=== PATIENT | female | born 1935 | race Caucasian/White ===

== ENCOUNTER → 2017-07-02 | Outpatient (CLI) | payer MEDICARE ==
[~2017-07-02] MED LIST: AMIODARONE HCL200 MG PO; ATENOLOL25 MG PO; CALTRATE 600 +1 EACH PO; CLONIDINE HCL0.1 MG PO; DIGOXIN125 MCG PO; DIOVAN HCT 3201 EACH PO; DIOVAN160 MG PO; PREMARIN0.45 MG PO; PRILOSEC OTC20 MG PO; SYNTHROID112 MCG PO; WARFARIN SODIUM5 MG PO
--- NOTE | 2017-07-02 15:48 | Diagnostic Imaging Report ---
PROCEDURE:THORACIC SPINE 2VW COMPARISON:None available. INDICATIONS:ONGOING UPPER BACK PAIN FINDINGS: See below. CONCLUSION: Multilevel degenerative changes of thoracic spine, marked by joint space narrowing and osteophytosis. No evidence of acute fracture or subluxation of thoracic spine. Vertebral body alignment and heights are maintained. Partially imaged left chest wall cardiac device leads. Dictated by: Josh Sosa M.D. on 07/02/2017 at 15:57 Electronically approved by: Josh Sosa M.D. on 07/02/2017 at 15:57
--- NOTE | 2017-07-02 15:55 | Diagnostic Imaging Report ---
PROCEDURE:L-SPINE COMPLETE COMPARISON:None. INDICATIONS:ONGOING LOWER BACK PAIN FINDINGS: There are 5 lumbar-type vertebral bodies. There is grade 1 retrolisthesis of L5 in relation to L4. Otherwise vertebral body alignments are normal. Vertebral body heights are maintained. Multilevel degenerative changes and facet arthropathy, most severe at L3-L4, L4-L5, and L5-S1. There are no fractures, lytic or blastic lesions. Vascular calcifications. CONCLUSION: Multilevel degenerative changes of lumbar spine. Grade 1 retrolisthesis of L5 in relation to L4. Dictated by: Josh Sosa M.D. on 07/02/2017 at 16:03 Electronically approved by: Josh Sosa M.D. on 07/02/2017 at 16:03
== END ==
LOC: RAD 13:42
PROVIDERS: ATTEND Family Medicine
DX: M54.6 Pain in thoracic spine (principal); M54.5 Low back pain; G89.29 Other chronic pain
CPT/HCPCS: 72070; 72110

== ENCOUNTER 2018-04-30 06:27 | Emergency (ER) | payer MEDICARE ==
[~2018-04-30] VITALS: Ht 322.6 cm; Wt 79.8 kg
--- OUTSIDE RECORDS SUMMARY | 2018-04-30 06:32 | XMS REPORT ---
Author Author [facility] Address Unknown Phone Unavailable Care Team Providers Care [employer] Hand Name Role Phone Annamarie BERNAL Unavailable Unavailable Problems This patient has no known problems. Allergies, Adverse Reactions, Alerts This patient has no known allergies or adverse reactions. Medications This patient has no known medications. Results Test Description Test Time Test Comments Text Results Atomic Results Result Comments THORACIC SPINE 2VW [place] [address] Patient Name: JENNIFER LOWE MR #: [id number] : 1935 Age/Sex: 82/F Req #: [id number] [facility] Physician: Ordered by: AXEL BERNAL DO Report #: [id number] Location: [facility] Room/Bed: Procedure: [id number] DX/THORACIC SPINE 2VW Exam Date: 07/02/17 Exam Time: 1445 REPORT STATUS: Signed PROCEDURE: THORACIC SPINE 2VW COMPARISON: None available. INDICATIONS: ONGOING UPPER BACK PAIN FINDINGS: See below. CONCLUSION: Multilevel degenerative changes of thoracic spine, marked by joint space narrowing and osteophytosis. No evidence of acute fracture or subluxation of thoracic spine. Vertebral body alignment and heights are maintained. Partially imaged left chest wall cardiac device leads. Dictated by: Josh Sosa M.D. on 07/02/2017 at 15:57 Electronically approved by: Josh Sosa M.D. on 07/02/2017 at 15:57 Dictated By: JOSH SOSA MD 56 Transcribed By: KRISTINA on 07/02/171556 COPY TO: AXEL BERNAL DO SP LUMBAR, COMPLETE MIN 4VW [place] [address] Patient Name: JENNIFER LOWE MR #: [id number] : 1935 Age/Sex: 82/F Req #: [id number] Adm Physician: Ordered by: AXEL BERNAL DO Report #: [id number] Location: [facility] Room/Bed: Procedure: [id number] DX/SP LUMBAR, COMPLETE MIN 4VW Exam Date: 07/02/17 Exam Time: 1445 REPORT STATUS: Signed PROCEDURE: L-SPINE COMPLETE COMPARISON: None. INDICATIONS: ONGOING LOWER BACK PAIN FINDINGS: There are 5 lumbar- type vertebral bodies. There is grade 1 retrolisthesis of L5 in relation to L4. Otherwise vertebral body alignments are normal. Vertebral body heights are maintained. Multilevel degenerative changes and facet arthropathy, most severe at L3-L4, L4-L5, and L5-S1. There are no fractures, lytic or blastic lesions. Vascular calcifications. CONCLUSION: Multilevel degenerative changes of lumbar spine. Grade 1 retrolisthesis of L5 in relation to L4. Dictated by: Josh Sosa M.D. on 07/02/2017 at 16:03 Electronically approved by: Josh Sosa M.D. on 07/02/2017 at 16:03 Dictated By: JOSH SOSA MD 1603 Transcribed By: KRISTINA on 07/02/17 1603 COPY TO: AXEL BERNAL DO
--- OUTSIDE RECORDS SUMMARY | 2018-04-30 06:32 | XMS REPORT | Clinical Summary ---
Author Author [facility] Address Unknown Phone Unavailable Care Team Providers Care Consulting Technical Director Name Role Phone System, Provider Not In MD PCP Unavailable Allergies Active Allergy Reactions Severity Noted Date Comments Codeine Other (See Comments) Medium 01/11/2018 hallucinations Penicillins Rash Low 01/11/2018 Current Medications Prescription Sig. Disp. Refills Start End Date Status Date warfarin (COUMADIN) 5 MG Take 5 mg by mouth daily. Active tablet Take 1 tablet (5mg) by mouth daily for 30 days. levothyroxine (SYNTHROID, Take 112 mcg by mouth Active LEVOXYL) 112 mcg tablet every morning. atenolol (TENORMIN) 100 Take 100 mg by mouth 2 Active MG tablet (two) times a day. valsartan 160 MG tablet 1 Take by mouth daily. Active tablet, hydroCHLOROthiazide 25 MG tablet 1 tablet diltiazem CD (CARTIA XT) Take 120 mg by mouth Active 120 MG 24 hr capsule daily. amIODarone (PACERONE) 200 Take 200 mg by mouth 2 Active MG tablet (two) times a week. metFORMIN (GLUCOPHAGE) Take 500 mg by mouth Active 500 mg tablet daily. omeprazole (PriLOSEC) 20 Take 20 mg by mouth Active MG capsule daily. folic Take 1 tablet by mouth Active acid/multivit-min/lutein daily. (CENTRUM SILVER ORAL) vit A/vit C/vit Take 1 tablet by mouth 2 Active E/zinc/copper (two) times a day. (PRESERVISION AREDS ORAL) Active Problems Not on file Encounters Date Type Specialty Care Team Description 01/14/2018 [facility] Radiology Quin Cool MD Postlaminectomy syndrome, Encounter lumbar region; Lumbar radiculopathy 01/14/2018 [facility] Radiology Quin Cool MD Postlaminectomy syndrome, Encounter lumbar region; Lumbar radiculopathy 12/31/2017 [facility] Quin Cool MD Postlaminectomy syndrome, Orders lumbar region (Primary Dx); Lumbar radiculopathy after 04/29/2017 Family History Medical History Relation Name Comments Heart disease Father Cancer Mother Relation Name Status Comments Father Mother Social History Tobacco Use Types Packs/Day Years Used Date Never Smoker Smokeless Tobacco: Never Used Alcohol Use Drinks/Week oz/Week Comments Yes 1 Glasses of 0.6 once every few month wine Sex Assigned at Date Recorded Not on file Last Filed Vital Signs Vital Sign Reading Time Taken Blood Pressure 147/69 01/14/2018 2:00 PM CDT Pulse 62 01/14/2018 2:00 PM CDT Temperature 36.6 C (97.9 F) 01/14/2018 10:16 AM CDT Respiratory Rate 18 01/14/2018 2:00 PM CDT Oxygen Saturation 96% 01/14/2018 2:00 PM CDT Inhaled Oxygen - - Concentration Weight 85.1 kg (187 lb 9 oz) 01/14/2018 7:48 AM CDT Height 165.1 cm (5' 5") 01/14/2018 7:48 AM CDT Body Mass Index 31.21 01/14/2018 7:48 AM CDT Plan of Treatment Health Maintenance Due Date Last Done Comments SHINGRIX VACCINE (#1) 1984 ZOSTER VACCINE 1994 PNEUMOCOCCAL 1999 POLYSACCHARIDE VACCINE AGE 65 AND OVER PNEUMOCOCCAL-13 1999 INFLUENZA VACCINE 01/23/2018 Procedures Procedure Name Priority Date/Time Associated Diagnosis Comments CT POST MYELOGRAM LUMBAR Routine 01/14/2018 Postlaminectomy syndrome, Results for this 10:05 AM CDT lumbar region procedure are in the Lumbar radiculopathy results section. FL MYELOGRAM LUMB INCL Routine 01/14/2018 Postlaminectomy syndrome, Results for this INJ W S&I 9:40 AM CDT lumbar region procedure are in the Lumbar radiculopathy results section. GRAM STAIN Routine 01/14/2018 Results for this 9:22 AM CDT procedure are in the results section. CSF CULTURE Routine 01/14/2018 Results for this 9:22 AM CDT procedure are in the results section. CSF PATHOLOGIST CONSULT Routine 01/14/2018 Results for this 9:21 AM CDT procedure are in the results section. VDRL, CSF SCREEN Routine 01/14/2018 Results for this 9:21 AM CDT procedure are in the results section. GLUCOSE LEVEL, CSF Routine 01/14/2018 Results for this 9:21 AM CDT procedure are in the results section. PROTEIN, CSF Routine 01/14/2018 Results for this 9:21 AM CDT procedure are in the results section. CSF CELL COUNT WITH Routine 01/14/2018 Results for this DIFFERENTIAL 9:21 AM CDT procedure are in the results section. HC COMPLETE BLD COUNT STAT 01/14/2018 Results for this W/AUTO DIFF 7:40 AM CDT procedure are in the results section. PARTIAL THROMBOPLASTIN STAT 01/14/2018 Results for this TIME (PTT) 7:40 AM CDT procedure are in the results section. PROTHROMBIN TIME WITH INR STAT 01/14/2018 Results for this 7:40 AM CDT procedure are in the results section. POC GLUCOSE Routine 01/14/2018 Results for this 7:36 AM CDT procedure are in the results section. after 04/29/2017 Results * CT Post Myelogram Lumbar (01/14/2018 10:05 AM) Narrative Performed At EXAMINATION:CT POST MYELOGRAM LUMBAR [facility] CLINICAL HISTORY:M96.1 Postlaminectomy syndromenot elsewhere classified, M54.16 Radiculopathylumbar region, POST LAMINECTOMY SYNDROMERADICULOPATHY COMPARISON:None. FINDINGS: There is a scoliosis of the lumbar spine moderate degree convex to the left in the lower lumbar region and to the right in the upper lumbar region. Severe degenerative facet disease is present at multiple levels throughout the lumbar spine. There is a grade 1 spondylolisthesis of L4 on L5 and there is severe degenerative facet disease at multiple levels. L1-2: The foramina demonstrate narrowing to the left related to a disc protrusion although greater toward the left. This compresses the thecal sac anterolaterally toward the left. The central canal measures approximately 10 to 11 mm. The left lateral recess is narrowed related to the disc protrusion and facet hypertrophy the right is patent. Facets are grossly hypertrophic. L2-3: The foramina demonstrate marked narrowing of the foramen to the left with milder narrowing of the foramen to the right related to diffuse disc protrusion again greater toward the left. There is a severe central canal and bilateral lateral recess stenosis with an AP canal of approximately 4 mm. Thecontrast column at that level is obliterated. Facets are also grossly hypertrophic and compresses the thecal sac dorsally. L3-4: The foramina are narrowed bilaterally again greater to the left by disc protrusion mild osteophytic ridge. There is a spinal stenosis with the AP canal narrowed to approximately 7 mm. The lateral recesses are narrowed greater to the right with obliteration of the right lateral recess at that level. Facets are grossly hypertrophic. L4-5: There is a pronounced central canal and bilateral lateral recess stenosis with marked narrowing of the central canal and lateral recesses related to an osteophytic ridge, mild central disc protrusion and gross dorsal facet and ligamentous hypertrophy. L5-S1: There is foraminal narrowing greater to the left although also likely due to degenerative changes with posterior lateral protrusion with some faint calcification centrally and to the left at the level of the scar may contribute. A laminectomy defect dorsally to the left is present at that level. The thecal sac is compressed anterolaterally toward the left with gross dorsal facet and ligamentous hypertrophy. IMPRESSION: 1. Multilevel spinal stenosis with a stenosis at the L4-5, L3-4 L2-3 and L1-2 levels greatest at the L2-3 level although tiny stenosis is present at multiple levels. 2. Posterior lateral apparent protrusion centrally and to the left at the L5-S1 level although some of this could be related to scar disc is suspected. 3. Foraminal stenosis at multiple levels greatest at the left at L1-L2, L2-3 and L3-4 levels. [id number] Procedure Note Hm Interface, Radiology Results 01/14/2018 11:56 AM CDT EXAMINATION: CT POST MYELOGRAM LUMBAR CLINICAL HISTORY: M96.1 Postlaminectomy syndrome not elsewhere classified, M54.16 Radiculopathy lumbar region, POST LAMINECTOMY SYNDROME RADICULOPATHY COMPARISON: None. FINDINGS: There is a scoliosis of the lumbar spine moderate degree convex to the left in the lower lumbar region and to the right in the upper lumbar region. Severe degenerative facet disease is present at multiple levels throughout the lumbar spine. There is a grade 1 spondylolisthesis of L4 on L5 and there is severe degenerative facet disease at multiple levels. L1-2: The foramina demonstrate narrowing to the left related to a disc protrusion although greater toward the left. This compresses the thecal sac anterolaterally toward the left. The central canal measures approximately 10 to 11 mm. The left lateral recess is narrowed related to the disc protrusion and facet hypertrophy the right is patent. Facets are grossly hypertrophic. L2-3: The foramina demonstrate marked narrowing of the foramen to the left with milder narrowing of the foramen to the right related to diffuse disc protrusion again greater toward the left. There is a severe central canal and bilateral lateral recess stenosis with an AP canal of approximately 4 mm. The contrast column at that level is obliterated. Facets are also grossly hypertrophic and compresses the thecal sac dorsally. L3-4: The foramina are narrowed bilaterally again greater to the left by disc protrusion mild osteophytic ridge. There is a spinal stenosis with the AP canal narrowed to approximately 7 mm. The lateral recesses are narrowed greater to the right with obliteration of the right lateral recess at that level. Facets are grossly hypertrophic. L4-5: There is a pronounced central canal and bilateral lateral recess stenosis with marked narrowing of the central canal and lateral recesses related to an osteophytic ridge, mild central disc protrusion and gross dorsal facet and ligamentous hypertrophy. L5-S1: There is foraminal narrowing greater to the left although also likely due to degenerative changes with posterior lateral protrusion with some faint calcification centrally and to the left at the level of the scar may contribute. A laminectomy defect dorsally to the left is present at that level. The thecal sac is compressed anterolaterally toward the left with gross dorsal facet and ligamentous hypertrophy. IMPRESSION: 1. Multilevel spinal stenosis with a stenosis at the L4-5, L3-4 L2-3 and L1-2 levels greatest at the L2-3 level although tiny stenosis is present at multiple levels. 2. Posterior lateral apparent protrusion centrally and to the left at the L5-S1 level although some of this could be related to scar disc is suspected. 3. Foraminal stenosis at multiple levels greatest at the left at L1-L2, L2-3 and L3-4 levels. [id number] Performing Organization Address City/State/Zipcode Phone Number [facility] [id number] [place] [address] * FL Myelogram Lumb Incl Inj W S&I (01/14/2018 9:40 AM) Narrative Performed At EXAMINATION:FL MYELOGRAM LUMB INCL INJ W S&I [facility] CLINICAL HISTORY:M96.1 Postlaminectomy syndromenot elsewhere classified, M54.16 Radiculopathylumbar region, POST LAMINECTOMY SYNDROMERADICULOPATHY COMPARISON: Following informed consent using aseptic technique under local anesthetic Fluoroscopy time 3 minutes 46 seconds, 18 spot images were obtained. FINDINGS: Informed consent was obtained after discussion the procedure with the patient. She understood and wished to proceed. She has been off Coumadin for 7 days. Lumbar puncture was performed with the L3 level was first attempted with a 25-gauge spinal needle given the severe hypertrophic changes a 22-gauge needle was required. 2 cc of clear CSF was obtained without difficulty. I then instilled approximately 10 cc of Omnipaque 240 into the lumbar subarachnoid space. There is a grade 1 spondylolisthesis of L4 on L5. There also appears to be a laminectomy defect toward the right at the L3 level there may be a defect at the L4-5 and L5-S1 levels as well correlation with clinical findings is needed. Scoliosis is present mild in degree convex toward the left. There is a multilevel spinal stenosis with the most severe stenosis at the L2-3 level with obliteration of the canal or near obliteration of the canal at this level. The nerve roots appear serpiginous above this level there is also a high-grade spinal stenosis at the L1-2 level with milder changes at the L3-4, L4-5 and minimal changes at L5-S1. The root sleeves fill poorly bilaterally throughout the lumbar region on both sides. The stenosis appears to be result of both hypertrophic degenerative facet disease dorsallyand disc protrusions along the ventral surface of the canal grossly and disc protrusions at multiple levels. No additional findings of significance are noted. IMPRESSION: 1. Scoliosis of the lumbar spine with associated hypertrophic degenerative changes involving the facet joints with degenerative disc disease throughout the lumbar region. 2. Multilevel spinal stenosis with a tight stenosis and near obliteration of the canal at the L2-3 with milder changes at the L1-2 and L3-4 levels with borderline stenoses at the L4-5 and L5-S1 levels as well. [id number] Procedure Note Hm Interface, Radiology Results Incoming - 01/14/2018 10:49 AM CDT EXAMINATION: FL MYELOGRAM LUMB INCL INJ W S&I CLINICAL HISTORY: M96.1 Postlaminectomy syndrome not elsewhere classified, M54.16 Radiculopathy lumbar region, POST LAMINECTOMY SYNDROME RADICULOPATHY COMPARISON: Following informed consent using aseptic technique under local anesthetic Fluoroscopy time 3 minutes 46 seconds, 18 spot images were obtained. FINDINGS: Informed consent was obtained after discussion the procedure with the patient. She understood and wished to proceed. She has been off Coumadin for 7 days. Lumbar puncture was performed with the L3 level was first attempted with a 25- gauge spinal needle given the severe hypertrophic changes a 22-gauge needle was required. 2 cc of clear CSF was obtained without difficulty. I then instilled approximately 10 cc of Omnipaque 240 into the lumbar subarachnoid space. There is a grade 1 spondylolisthesis of L4 on L5. There also appears to be a laminectomy defect toward the right at the L3 level there may be a defect at the L4-5 and L5-S1 levels as well correlation with clinical findings is needed. Scoliosis is present mild in degree convex toward the left. There is a multilevel spinal stenosis with the most severe stenosis at the L2-3 level with obliteration of the canal or near obliteration of the canal at this level. The nerve roots appear serpiginous above this level there is also a high- grade spinal stenosis at the L1-2 level with milder changes at the L3-4, L4-5 and minimal changes at L5-S1. The root sleeves fill poorly bilaterally throughout the lumbar region on both sides. The stenosis appears to be result of both hypertrophic degenerative facet disease dorsally and disc protrusions along the ventral surface of the canal grossly and disc protrusions at multiple levels. No additional findings of significance are noted. IMPRESSION: 1. Scoliosis of the lumbar spine with associated hypertrophic degenerative changes involving the facet joints with degenerative disc disease throughout the lumbar region. 2. Multilevel spinal stenosis with a tight stenosis and near obliteration of the canal at the L2-3 with milder changes at the L1-2 and L3-4 levels with borderline stenoses at the L4-5 and L5-S1 levels as well. [id number] Performing Organization Address City/State/Zipcode Phone Number [facility] [phone] [place] [address] * Gram stain (01/14/2018 9:22 AM) Gram stain isolate No WBC's or organisms seen. [facility] DEPARTMENT OF Comment: PATHOLOGY AND Specimen Information GENOMIC MEDICINE Specimen Source: CSF (Spinal Fluid) Specimen Site: CSF (spinal fluid) Specimen Cerebrospinal fluid - CSF (spinal fluid) Performing Organization Address [facility] Phone Number [facility] DEPARTMENT OF [address] [place] [id number] PATHOLOGY AND GENOMIC MEDICINE * CSF culture (01/14/2018 9:22 AM) CSF culture isolate No growth after 3 days. [facility] DEPARTMENT OF Comment: PATHOLOGY AND Specimen Information GENOMIC MEDICINE Specimen Source: CSF (Spinal Fluid) Specimen Site: CSF (spinal fluid) Specimen Cerebrospinal fluid - CSF (spinal fluid) Performing Organization Address [facility] Phone Number [facility] DEPARTMENT [address] [address] PATHOLOGY AND GENOMIC MEDICINE * CSF pathologist consult (01/14/2018 9:21 AM) CSF pathologist consult Done [facility] DEPARTMENT OF PATHOLOGY AND GENOMIC MEDICINE Specimen Cerebrospinal fluid Performing Organization Address [facility] Phone Number [address] [place] [address] PATHOLOGY AND GENOMIC MEDICINE * CSF cell count with differential (01/14/2018 9:21 AM) CSF tube number Tube 1 [facility] DEPARTMENT OF PATHOLOGY AND GENOMIC MEDICINE Color, CSF Colorless [facility] DEPARTMENT OF PATHOLOGY AND GENOMIC MEDICINE Appearance, CSF Clear [facility] DEPARTMENT OF PATHOLOGY AND GENOMIC MEDICINE CSF supernatant Colorless [facility] DEPARTMENT OF PATHOLOGY AND GENOMIC MEDICINE RBC, CSF 70 (H) 0 - 1 /CMM [facility] DEPARTMENT OF PATHOLOGY AND GENOMIC MEDICINE WBC, CSF 5 0 - 5 /CMM [facility] DEPARTMENT OF PATHOLOGY AND GENOMIC MEDICINE CSF mononuclear cell See Diff [facility] DEPARTMENT OF PATHOLOGY AND GENOMIC MEDICINE Neutrophils, CSF 5 % [facility] DEPARTMENT OF PATHOLOGY AND GENOMIC MEDICINE Lymphocytes, CSF 22 % [facility] DEPARTMENT OF PATHOLOGY AND GENOMIC MEDICINE Monocytes, CSF 23 % [facility] DEPARTMENT OF PATHOLOGY AND GENOMIC MEDICINE Eosinophils, CSF 0 % [facility] DEPARTMENT OF PATHOLOGY AND GENOMIC MEDICINE Basophils, CSF 0 % [facility] DEPARTMENT OF PATHOLOGY AND GENOMIC MEDICINE Specimen Cerebrospinal fluid Performing Organization Address [facility] [place] Phone Number [address] [place] [address] PATHOLOGY AND GENOMIC MEDICINE * VDRL, CSF screen (01/14/2018 9:21 AM) VDRL, CSF screen Non-reactive Non-reactive [facility] DEPARTMENT OF PATHOLOGY AND GENOMIC MEDICINE Specimen Cerebrospinal fluid Performing Organization Address [facility] Phone Number [facility] DEPARTMENT OF [address] [place] [address] PATHOLOGY AND GENOMIC MEDICINE * Protein, CSF (01/14/2018 9:21 AM) Protein, CSF 129 (H) 15 - 45 mg/dL [facility] DEPARTMENT OF PATHOLOGY AND GENOMIC MEDICINE Specimen Cerebrospinal fluid Performing Organization Address [facility] Phone Number [address] [place] [address] PATHOLOGY AND GENOMIC MEDICINE * Glucose level, CSF (01/14/2018 9:21 AM) Glucose, CSF 72 (H) 40 - 70 mg/dL [facility] DEPARTMENT OF PATHOLOGY AND GENOMIC MEDICINE Specimen Cerebrospinal fluid Performing Organization Address [facility] [place] Phone Number [address] [place] [address] PATHOLOGY AND GENOMIC MEDICINE * Partial thromboplastin time, activated (01/14/2018 7:40 AM) PTT 31.7 23.0 - 36.0 sec [facility] DEPARTMENT OF Comment: PATHOLOGY AND PTT therapeutic range for [facility] MEDICINE unfractionated heparin is 61.0-112.0 seconds which corresponds to Anti-Xa 0.3-0.7 U/ml. Specimen Blood Performing Organization Address [facility] [place] Phone Number [address] [place] [address] PATHOLOGY AND [facility] MEDICINE * Prothrombin time with INR (01/14/2018 7:40 AM) Prothrombin time 14.2 12.0 - 15.0 sec [facility] DEPARTMENT OF PATHOLOGY AND GENOMIC MEDICINE INR 1.1 [facility] DEPARTMENT OF Comment: PATHOLOGY AND The International Normalized GENOMIC MEDICINE Ratio (INR) is a therapeutic monitoring tool for patients who are stable on oral anticoagulant therapy. An INR of 2.0-3.0 is suggested for deep vein thrombosis/pulmonary embolism. Specimen Blood Performing Organization Address [facility] [place] Phone Number [address] [place] [address] PATHOLOGY AND GENOMIC MEDICINE * CBC with platelet and differential (01/14/2018 7:40 AM) WBC 9.07 4.50 - 11.00 k/uL [facility] DEPARTMENT OF PATHOLOGY AND GENOMIC MEDICINE RBC 4.18 (L) 4.20 - 5.50 m/uL [facility] DEPARTMENT OF PATHOLOGY AND GENOMIC MEDICINE HGB 13.7 12.0 - 16.0 g/dL [facility] DEPARTMENT OF PATHOLOGY AND GENOMIC MEDICINE HCT 40.8 37.0 - 47.0 % [facility] DEPARTMENT OF PATHOLOGY AND GENOMIC MEDICINE MCV 97.6 82.0 - 100.0 fL [facility] DEPARTMENT OF PATHOLOGY AND GENOMIC MEDICINE MCH 32.8 27.0 - 34.0 pg [facility] DEPARTMENT OF PATHOLOGY AND GENOMIC MEDICINE MCHC 33.6 31.0 - 37.0 g/dL [facility] DEPARTMENT OF PATHOLOGY AND GENOMIC MEDICINE RDW - SD 47.3 37.0 - 55.0 fL [facility] DEPARTMENT OF PATHOLOGY AND GENOMIC MEDICINE MPV 10.2 8.8 - 13.2 fL [facility] DEPARTMENT OF PATHOLOGY AND GENOMIC MEDICINE Platelet count 233 150 - 400 k/uL [facility] DEPARTMENT OF PATHOLOGY AND GENOMIC MEDICINE Nucleated RBC 0.00 /100 WBC [facility] DEPARTMENT OF PATHOLOGY AND GENOMIC MEDICINE Neutrophils 65.1 39.0 - 69.0 % [facility] DEPARTMENT OF PATHOLOGY AND GENOMIC MEDICINE Lymphocytes 25.7 25.0 - 45.0 % [facility] DEPARTMENT OF PATHOLOGY AND GENOMIC MEDICINE Monocytes 7.1 0.0 - 10.0 % [facility] DEPARTMENT OF PATHOLOGY AND GENOMIC MEDICINE Eosinophils 1.4 0.0 - 5.0 % [facility] DEPARTMENT OF PATHOLOGY AND GENOMIC MEDICINE Basophils 0.4 0.0 - 1.0 % [facility] DEPARTMENT OF PATHOLOGY AND GENOMIC MEDICINE Specimen Blood Performing Organization Address City/[facility] Phone Number [facility] [id number] [place] [address] [place] [id number] PATHOLOGY AND GENOMIC MEDICINE * POC glucose (01/14/2018 7:36 AM) POC glucose 124 (H) 65 - 99 mg/dL [facility] DEPARTMENT OF Comment: PATHOLOGY AND Meter ID: [id number] GENOMIC MEDICINE Cane [employer]ume Feeding Machine Operator: Carina Montaño Performing Organization Address City/[facility]/Zipcode Phone Number [address] [place] [address] PATHOLOGY AND GENOMIC MEDICINE after 04/29/2017 Insurance Payer Benefit Subscriber ID Type Phone Address Plan / Group AETNA MEDICARE AETNA xxxxxxxx HMO MEDICARE HMO/PPO [facility]
--- NOTE | 2018-04-30 07:17 | Diagnostic Imaging Report ---
PROCEDURE:X-RAY LEFT SHOULDER, COMPLETE COMPARISON:None. INDICATIONS:FALL FINDINGS: There are no fractures, dislocations, lytic or blastic lesions. Mild AC joint degenerative change. The bones are well-mineralized. The soft-tissues are unremarkable. A cardiac device overlies the left chest wall. CONCLUSION: No acute bony abnormality. Grey Rooney D.O. Dictated by: Grey Rooney D.O. on 04/30/2018 at 7:25 Electronically approved by: Grey Rooney D.O. on 04/30/2018 at 7:25
== END 2018-04-30 09:39 | disposition home or self-care (01) ==
LOC: ER 06:27
DX: S40.012A Contusion of left shoulder, initial encounter (principal); M25.512 Pain in left shoulder; W18.39XA Other fall on same level, initial encounter; Y92.008 Other place in unspecified non-institutional (private) residence as the place of occurrence of the external cause; I10 Essential (primary) hypertension; E11.9 Type 2 diabetes mellitus without complications; E03.9 Hypothyroidism, unspecified; I48.91 Unspecified atrial fibrillation
CPT/HCPCS: 99283

== ENCOUNTER 2018-06-03 13:50 | Outpatient (RCR) | payer MEDICARE | END 2018-06-24 | LOC: PT 13:50 | PROVIDERS: ATTEND Specialist | DX: Z96.652 Presence of left artificial knee joint (principal); S82.035D Nondisplaced transverse fracture of left patella, subsequent encounter for closed fracture with routine healing; S80.02XD Contusion of left knee, subsequent encounter; S46.012D Strain of muscle(s) and tendon(s) of the rotator cuff of left shoulder, subsequent encounter; M17.11 Unilateral primary osteoarthritis, right knee; S80.01XD Contusion of right knee, subsequent encounter | CPT/HCPCS: 97162; G8978; G8979 ==

== ENCOUNTER 2018-06-09 09:04 | Emergency (ER) | payer MEDICARE ==
[~2018-06-09] VITALS: Ht 165.1 cm; Wt 81.6 kg
[2018-06-09 09:44] LABS: BASOPHILS % 0.2 % (0.0-1.0); EOSINOPHILS # (AUTO) 0.1 (0.0-0.4); EOSINOPHILS % 1.5 % (0.0-6.0); HEMATOCRIT 39.5 % (34.2-44.1); HEMOGLOBIN 13.1 g/dL (12.0-16.0); LYMPHOCYTES # (AUTO) 1.8 (1.0-3.2); LYMPHOCYTES % 22.2 % (18.0-39.1); MEAN CORPUSCULAR HEMOGLOBIN 32.4 pg (28-32); MEAN CORPUSCULAR HGB CONC 33.2 g/dL (31-35); MEAN CORPUSCULAR VOLUME 97.8 fL (81-99); MONOCYTES # (AUTO) 0.7 (0.2-0.8); MONOCYTES % 8.9 % (4.4-11.3); NEUTROPHILS # (AUTO) 5.4 (2.1-6.9); NEUTROPHILS % 66.8 % (38.7-80.0); PLATELET COUNT 254 x10e3/uL (140-360); RED BLOOD COUNT 4.04 x10e6/uL (3.6-5.1); RED CELL DISTRIBUTION WIDTH 13.4 % (11.7-14.4)
[2018-06-09] MEDS ORDERED: ASPIRIN 81 MG CHEW TAB PO ONE (09:45)
[2018-06-09 10:01] LABS: INR 1.15; PROTHROMBIN TIME 15.7 seconds (11.9-14.5)
[2018-06-09 10:02] LABS: PARTIAL THROMBOPLASTIN TIME 32.9 seconds (23.8-35.5)
[2018-06-09 10:05] LABS: ANION GAP 14.2 mmol/L (8-16); BLOOD UREA NITROGEN 23 mg/dL (7-26); BUN/CREATININE RATIO 24 (6-25); CALCIUM 9.8 mg/dL (8.4-10.2); CARBON DIOXIDE 28 mmol/L (22-29); CHLORIDE 101 mmol/L (98-107); CREATINE KINASE 55 IU/L (29-168); CREATININE, SERUM 0.94 mg/dL (0.57-1.11); EST GLOMERULAR FILTRATION RATE 57 ML/MIN (60-); GLUCOSE 113 mg/dL (74-118); POTASSIUM 4.2 mmol/L (3.5-5.1); SODIUM 139 mmol/L (136-145)
--- NOTE | 2018-06-09 10:18 | Diagnostic Imaging Report ---
EXAMINATION: CHEST SINGLE (NOT PORTABLE) INDICATION: ^CHEST PAIN ^[id number] ^[id number] COMPARISON: None FINDINGS: AP view TUBES and LINES: 2-lead pacemaker device overlying the left upper chest with leads overlying the right atrial appendage and right ventricle. LUNGS: Lungs are well inflated. Lungs are clear. There is no evidence of pneumonia or pulmonary edema. PLEURA: No pleural effusion or pneumothorax. HEART AND MEDIASTINUM: The cardiomediastinal silhouette is unremarkable.. BONES AND SOFT TISSUES: No acute osseous lesion. Soft tissues are unremarkable. UPPER ABDOMEN: No free air under the diaphragm. IMPRESSION: No acute thoracic abnormality. Signed by: Dr. Milagro Smith M.D. on 06/09/2018 10:14 AM
[2018-06-09] MEDS ORDERED: ASPIRIN 81 MG CHEW TAB ONE (13:22)
[2018-06-09 14:43] VITALS: BP 147/63
== END 2018-06-09 14:45 | disposition home or self-care (01) ==
LOC: ER 09:04
DX: R07.89 Other chest pain (principal); E11.9 Type 2 diabetes mellitus without complications; I48.91 Unspecified atrial fibrillation; E07.9 Disorder of thyroid, unspecified; Z95.0 Presence of cardiac pacemaker
CPT/HCPCS: 36415; 71045; 80048; 82550; 82553; 83735; 84484; 85025; 85610; 85730; 93005; 99283